=== PATIENT | male | born 1990 | race Two or more races ===

== ENCOUNTER 2021-02-16 09:51 | Emergency (ER) | payer SELFPAY ==
[2021-02-16] MEDS ORDERED: Ketorolac 60 MG/2 ML SDV IM ONE (11:06)
--- NOTE | 2021-02-16 11:14 | EDM.PDOC ---
ED HPI GENERAL MEDICAL PROBLEM - General Chief Complaint: Back Pain or Injury Stated Complaint: LEG WEAKNESS Time Seen by Provider: 02/16/21 11:08 Source of Information: Reports: Patient, RN Notes Reviewed History Limitations: Reports: No Limitations - History of Present Illness INITIAL COMMENTS - FREE TEXT/NARRATIVE: Patient is a 30 year old male presenting to the ER with c/o a 1 week hx of low back pain with worsening of symptoms yesterday. He states that yesterday he used an inversion table and when he got off, he experienced intense low back pain that radiated down his bilateral legs. Today the pain is "90% better", but he presents because he thought he should get it checked out. Today, he has intermittent shooting pains in his left lower extremity only. Denies any recent injury. He has had no bowel or bladder dysfunction. he has taken nothing for pain. - Related Data Allergies Allergy/AdvReac Type Severity Reaction Status Date / Time No Known Allergies Allergy Verified 02/16/21 10:07 Home Meds: Home Meds Cyclobenzaprine [Flexeril] 10 mg PO TID PRN #10 tab 02/16/21 [Rx] Naproxen [Naprosyn] 500 mg PO Q12HR 5 Days #10 tab 02/16/21 [Rx] Past Medical History - Past Health History Medical/Surgical History: Denies Medical/Surgical History Social & Family History - Tobacco Use Tobacco Use Status *Q: Current Every Day Tobacco User Years of Tobacco use: 10 Packs/Tins Daily: 1 - Recreational Drug Use Recreational Drug Use: No ED ROS GENERAL - Review of Systems Review Of Systems: Comprehensive ROS is negative, except as noted in HPI. ED EXAM,LOWER BACK PAIN/INJURY - Physical Exam Exam: See Below Exam Limited By: No Limitations General Appearance: Alert, WD/WN, No Apparent Distress Respiratory/Chest: No Respiratory Distress, Lungs Clear, Normal Breath Sounds, No Accessory Muscle Use, Chest Non-Tender Cardiovascular: Normal Peripheral Pulses, Regular Rate, Rhythm, No Edema, No Gallop, No JVD, No Murmur, No Rub Back Exam: Normal Inspection, Full Range of Motion, Paraspinal Tenderness (left lateral), Other (tenderness over the left SI joint). No: Vertebral Tenderness Course - Vital Signs Last Recorded V/S: Last Vital Signs Temp 98.7 F 02/16/21 10:05 Pulse 72 02/16/21 10:05 Resp 16 02/16/21 10:05 BP 157/74 H 02/16/21 10:05 Pulse Ox 98 02/16/21 10:05 - Orders/Labs/Meds Meds: Medications Discontinued Medications Generic Name Dose Route Start Last Admin Trade Name Marcia PRN Reason Stop Dose Admin Ketorolac Tromethamine 60 mg 02/16/21 11:06 02/16/21 11:15 Ketorolac 60 Mg/2 Ml Sdv IM 02/16/21 11:07 60 mg ONETIME ONE Administration - Re-Assessments/Exams Free Text/Narrative Re-Assessment/Exam: Patient is a 30-year-old male presenting to the emergency department complaints of a 1 week history of low back pain with worsening of symptoms yesterday after getting off inversion table. Yesterday he had pain radiating down his bilateral legs, however today he states it is 90% better and now only has pain down his left leg. He denies any bowel or bladder dysfunction. On exam, patient has some mild tenderness to the left lateral paraspinous muscles as well as over the left SI joint. Exam is consistent with sciatica. I have ordered a lumbar x- ray as well as Toradol 60 mg IM. 02/16/21 12:16 xray of the lumbar spine shows minimal degenerative changes with slight scoliosis. There were no acute abnormalities. I have ordered a prescription of Naprosyn and Flexeril. Discharge instructions as documented. Departure - Departure Time of Disposition: 12:18 Disposition: Home, Self-Care 01 Condition: Good Clinical Impression: Sciatica Qualifiers: Laterality: left Qualified Code(s): M54.32 - Sciatica, left side - Discharge Information *PRESCRIPTION DRUG MONITORING PROGRAM REVIEWED*: No *COPY OF PRESCRIPTION DRUG MONITORING REPORT IN PATIENT ARNAUD: No Prescriptions: Cyclobenzaprine [Flexeril] 10 mg PO TID PRN #10 tab PRN Reason: Muscle Spasm Naproxen [Naprosyn] 500 mg PO Q12HR 5 Days #10 tab Instructions: Sciatica, Sclo-me-Thti Referrals: PCP,None [Primary Care Provider] - Forms: ED Department Discharge Additional Instructions: You were seen in the emergency department today for a 1 week history of low back pain with radiation down your legs. Xray of lumbar spine was completed and showed some degenerative changes but no acute abnormalities. You are likely suffering from sciatica which is caused by compression of a nerve in your low back. In the ER, you received an injection of Toradol to treat the pain and inflammation. A prescription for Naprosyn and Flexeril as been sent. Begin taking the Naprosyn this evening. The Flexeril may be used as needed for muscle spasms. If you continue to have symptoms after you have completed the treatment with Naprosyn, recommend follow-up in the clinic to establish care and for ongoing management. Return to ER as needed. Sepsis Event Note (ED) - Evaluation Sepsis Screening Result: No Definite Risk - Focused Exam Vital Signs: Vital Signs Temp Pulse Resp BP Pulse Ox 02/16/21 10:05 98.7 F 72 16 157/74 H 98
--- NOTE | 2021-02-16 11:41 | CR ---
Lumbar spine: AP, lateral and coned-down lateral views were obtained of the lumbar spine. Vertebral body heights and disc spaces are maintained. Very minimal scattered endplate osteophytes are seen. Minimal scoliosis is noted. Pedicles are intact. Visualized transverse and spinous processes are intact. Sacroiliac joints are normal. Impression: 1. Minimal degenerative change with slight scoliosis. Diagnostic code #2
== END 2021-02-16 12:40 | disposition home or self-care (01) ==
LOC: JD.ED 09:51
DX: M54.42 Lumbago with sciatica, left side (principal); Z72.0 Tobacco use
CPT/HCPCS: 72100; 96372; 99283; J1885

== ENCOUNTER 2021-07-24 10:55 | Emergency (ER) | payer SELFPAY ==
[2021-07-24] MEDS ORDERED: Ketorolac 60 MG/2 ML SDV IM ONE (11:30)
--- NOTE | 2021-07-24 11:34 | EDM.PDOC ---
ED HPI GENERAL MEDICAL PROBLEM - General Chief Complaint: Back Pain or Injury Stated Complaint: LOWER BACK AND LEG PAIN Time Seen by Provider: 07/24/21 11:24 Source of Information: Reports: Patient, RN Notes Reviewed History Limitations: Reports: No Limitations - History of Present Illness INITIAL COMMENTS - FREE TEXT/NARRATIVE: Patient is a 31-year-old male who presents to the ER for the evaluation of his chronic low back pain. Patient states that the pain has been bad for the last 2 weeks or so, he has been using the leftover Flexeril that he was prescribed in January. Notes that he did not seem to think it was helping so he stopped taking it. He has not been using any sort of Tylenol ibuprofen for pain management purposes. States that twisting, bending, and raising his leg straight off the bed seems to make the pain worse. When he is laying flat, it feels at its best. States the pain kind of radiates from left to right, but seems to be radiating down his left leg at this time. He is denying any urinary, fecal continence, or any numbness or tingling distal to the pain. Patient denies any other sick-like symptoms, fever/chills, cough/shortness of breath, nausea/vomiting/diarrhea. States he does not have a primary care provider. Treatments OB GYN PHYSICIAN ASSISTANT: Reports: Other (see below) Other Treatments OB GYN PHYSICIAN ASSISTANT: none Lower Back Pain Score (Numeric/FACES): 10 Bilateral Hip Pain Score (Numeric/FACES): 10 - Related Data Allergies Allergy/AdvReac Type Severity Reaction Status Date / Time No Known Allergies Allergy Verified 02/16/21 10:07 Home Meds: Home Meds Naproxen [Naprosyn] 500 mg PO Q12HR #20 tab 07/24/21 [Rx] Orphenadrine [Norflex] 100 mg PO BID PRN #20 tab 07/24/21 [Rx] Past Medical History - Past Health History Medical/Surgical History: Denies Medical/Surgical History Musculoskeletal History: Reports: Back Pain, Chronic Social & Family History - Tobacco Use Tobacco Use Status *Q: Current Every Day Tobacco User Years of Tobacco use: 16 Packs/Tins Daily: 0.5 - Caffeine Use Caffeine Use: Reports: Coffee, Soda - Recreational Drug Use Recreational Drug Use: No ED ROS GENERAL - Review of Systems Review Of Systems: Comprehensive ROS is negative, except as noted in HPI. ED EXAM,LOWER BACK PAIN/INJURY - Physical Exam Exam: See Below Exam Limited By: No Limitations General Appearance: Alert, WD/WN, No Apparent Distress Respiratory/Chest: No Respiratory Distress, Lungs Clear, Normal Breath Sounds, No Accessory Muscle Use, Chest Non-Tender Cardiovascular: Normal Peripheral Pulses, Regular Rate, Rhythm, No Edema GI/Abdominal: Normal Bowel Sounds, Soft, Non-Tender Back Exam: Normal Inspection Extremities: Normal Inspection, Normal Capillary Refill, Limited Range of Motion (of bilateral leg d/t pain) Neurological: Alert, Normal Mood/Affect, Normal Dorsiflexion, Normal Plantar Flexion, Straight Leg Raise (L). No: Straight Leg Raise (R), Saddle Anesthesia Psychiatric: Normal Affect, Normal Mood Skin Exam: Warm, Dry, Intact, Normal Color, No Rash Course - Vital Signs Last Recorded V/S: Last Vital Signs Temp 96.3 F L 07/24/21 11:17 Pulse 57 L 07/24/21 11:17 Resp 20 07/24/21 11:17 BP 123/68 07/24/21 11:17 Pulse Ox 97 07/24/21 11:17 - Orders/Labs/Meds Meds: Medications Discontinued Medications Generic Name Dose Route Start Last Admin Trade Name Freq PRN Reason Stop Dose Admin Ketorolac Tromethamine 60 mg 07/24/21 11:30 07/24/21 11:40 Ketorolac 60 Mg/2 Ml Sdv IM 07/24/21 11:31 60 mg ONETIME ONE Administration - Re-Assessments/Exams Free Text/Narrative Re-Assessment/Exam: 07/24/21 11:34 Patient presents to the ER for the evaluation of his back pain. We will go ahead and give him an injection of Toradol for management, as this seemed to help him in the past when he visited last January. 07/24/21 12:33 Patient is feeling better, and is wanting to go home at this time, we will go ahead and give him a course of Naprosyn and Norflex for ongoing management. Departure - Departure Time of Disposition: 12:35 Disposition: Home, Self-Care 01 Condition: Good Clinical Impression: Lower back pain Qualifiers: Chronicity: acute Back pain laterality: bilateral Sciatica presence: with sciatica Sciatica laterality: sciatica of left side Qualified Code(s): M54.42 - Lumbago with sciatica, left side - Discharge Information *PRESCRIPTION DRUG MONITORING PROGRAM REVIEWED*: No *COPY OF PRESCRIPTION DRUG MONITORING REPORT IN PATIENT ARNAUD: No Prescriptions: Naproxen [Naprosyn] 500 mg PO Q12HR #20 tab Orphenadrine [Norflex] 100 mg PO BID PRN #20 tab PRN Reason: Spasms Instructions: Managing Chronic Back Pain Referrals: PCP,None [Primary Care Provider] - Forms: ED Department Discharge, ED Return to Work/School Form Additional Instructions: You have been evaluated in the ED for your low back pain. You were given an injection of IM Toradol, this seemed to help relieve most your pain at today's visit. Please use ice/heat as tolerated to the affected area. You were given 2 different prescriptions 1 will be a muscle relaxer, 1 is an NSAID. Please use Naprosyn 1 tablet 2 times a day for ongoing pain management. Please use Norflex 2 times a day as needed for ongoing muscle spasms. This medication was electronically sent to the [place] [facility] located in the [email or web address]. If you do not have a primary care provider already, I recommend that you follow- up with a provider in our clinic, any family practice provider would be able to provide you with the services. Our clinic telephone number [phone], please call in the morning to obtain an appointment with the provider, for follow-up of your symptoms that prompted your ER visit today. Please return to ED if your symptoms should change or worsen. Sepsis Event Note (ED) - Focused Exam Vital Signs: Vital Signs Temp Pulse Resp BP Pulse Ox 07/24/21 11:17 96.3 F L 57 L 20 123/68 97
== END 2021-07-24 13:06 | disposition home or self-care (01) ==
LOC: JD.ED 10:55
DX: M54.42 Lumbago with sciatica, left side (principal); Z72.0 Tobacco use
CPT/HCPCS: 96372; 99283; J1885